=== PATIENT | female | born 1955 | race Caucasian/White ===

== ENCOUNTER 2022-04-22 12:48 | Emergency (ER) | payer MEDICARE ==
[~2022-04-22 12:48] MED LIST: AMITRIPTYLINE150 MG PO; AMLODIPINE BESYL5 MG PO; CARBIDOPA-LEVO1 EA14 PO
[2022-04-22 13:37] LABS: HEMOGLOBIN 11.5 gm/dl (12.3-15.3); RED BLOOD COUNT 3.95 M/UL (4.00-5.10); WHITE BLOOD COUNT 8.5 K/UL (4.5-11.0)
[2022-04-22 14:07] LABS: BUN/CREATININE RATIO 13 (0-10)
== END 2022-04-22 19:55 | disposition left against medical advice (07) ==
LOC: ER1 12:48
PROVIDERS: Emergency Medicine
DX: M79.644 Pain in right finger(s) (principal); I10 Essential (primary) hypertension
CPT/HCPCS: 73130; 80053; 85025; 85652; 86140; 99281